=== PATIENT | female | born 1990 | race Caucasian/White ===

== ENCOUNTER 2019-06-19 08:37 | Emergency (ER) | payer SELFPAY ==
[~2019-06-19] VITALS: Ht 162.6 cm; Wt 71.7 kg
[2019-06-19 08:43] VITALS: Ht 162.6 cm; Wt 71.7 kg
[2019-06-19 09:27] VITALS: BP 103/62
== END 2019-06-19 10:26 | disposition home or self-care (01) ==
LOC: ED 08:37
DX: R07.89 Other chest pain (principal); R06.02 Shortness of breath
CPT/HCPCS: J1885; Q0092